=== PATIENT | female | born 1950 | race Two or more races ===

== ENCOUNTER 2024-06-30 09:13 | Emergency (ER) | payer OTHER ==
[~2024-06-30] VITALS: Ht 170.2 cm; Wt 90.7 kg
[2024-06-30] MEDS ORDERED: GLIPIZIDE XL10 MG PO (09:19)
[2024-06-30] MEDS ORDERED: ATORVASTATIN CA20 MG PO (09:20)
[2024-06-30] MEDS ORDERED: ZESTRIL20 MG PO (09:21)
[2024-06-30] MEDS ORDERED: FAMOTIDINE/PF 20 MG in 0.9 % SODIUM CHLORIDE 8 ML IV PUSH STA (09:39)
[2024-06-30] MEDS ORDERED: 0.9 % SODIUM CHLORIDE 1,000 ML IV SCH (09:45)
[2024-06-30] MEDS ORDERED: METRONIDAZOLE/SODIUM CHLORIDE 500 MG/100 ML PIGGYBACK IV ONE (09:45)
[2024-06-30] MEDS ORDERED: MORPHINE SULFATE 4 MG/ML VIAL IV ONE (09:45)
[2024-06-30] MEDS ORDERED: CIPROFLOXACIN IN 5 % DEXTROSE 400 MG/200 ML PIGGYBAG IV ONE (09:45)
[2024-06-30] MEDS ORDERED: ONDANSETRON HCL 2 MG/ML VIAL IV ONE (09:45)
[2024-06-30 10:31] LABS: HEMATOCRIT 39.7 % (36.0-45.00); HEMOGLOBIN 13.5 g/dL (12.0-15.00); MEAN CELL VOLUME 92.3 fL (80.00-100.00); MEAN CORPUSCULAR HEMOGLOBIN 31.4 pg (27.00-32.0); PLATELET COUNT 287 K/uL (150-450); RED CELL DISTRIBUTION WIDTH 13.8 % (11.5-14.5)
[2024-06-30 10:56] LABS: PH,URINE 5.5 (5.0-8.0); URINE APPEARANCE Clear; URINE BILIRRUBIN Negative (NEGATIVE); URINE BLOOD Negative; URINE COLOR Yellow; URINE KETONE Negative (NEGATIVE); URINE LEUKOCYTE Negative; URINE NITRATE Negative; URINE PROTEIN Negative (NEGATIVE); URINE UROBILINOGEN 0.2 E.U./dl
[2024-06-30 10:57] LABS: URINE BACTERIA 291.2 uL (0.0-1933); URINE CAST 1.61 uL (0.0-1.40); URINE EPITHELIAL CELLS 21.5 uL (0.0-38.8); URINE RBC 7.8 uL (0.0-20.8)
[2024-06-30 11:01] LABS: ALBUMIN 3.1 gm/dL (3.4-5.0); BILIRUBIN TOTAL 0.47 mg/dL (0.3-1.2); CALCIUM 8.9 mg/dL (8.5-10.1); CREATININE SERUM 1.13 mg/dL (0.55-1.02); GFR 47.2; GLOBULINA 4.9 G/DL (2.4-3.5); POTASSIUM 3.99 mEq/L (3.5-5.1)
[2024-06-30 11:07] LABS: URINE GLUCOSE >=1000 MG/DL (NEGATIVE)
[2024-06-30] MEDS ORDERED: CIPRO500 MG PO (12:55)
[2024-06-30] MEDS ORDERED: LEVSIN/SL0.125 MG SL (12:55)
[2024-06-30] MEDS ORDERED: METRONIDAZOLE500 MG PO (12:55)
[2024-06-30] MEDS ORDERED: PROTONIX40 MG PO (12:55)
== END 2024-06-30 14:13 | disposition home or self-care (01) ==
LOC: ER 09:16
PROVIDERS: General Practice
DX: R10.32 Left lower quadrant pain (principal); K57.92 Diverticulitis of intestine, part unspecified, without perforation or abscess without bleeding; R10.9 Unspecified abdominal pain; I10 Essential (primary) hypertension; E11.9 Type 2 diabetes mellitus without complications; Z88.0 Allergy status to penicillin; Z88.6 Allergy status to analgesic agent
CPT/HCPCS: 36415; 74176; 96365; 96366; 99284; J0744; J2270; J2405; J3490 ×2; J7030

== ENCOUNTER 2024-10-23 18:24 | Emergency (ER) | payer OTHER ==
[~2024-10-23] VITALS: Ht 167.6 cm; Wt 90.7 kg
[~2024-10-23 18:24] MED LIST: ATORVASTATIN CA20 MG PO; CIPRO500 MG PO; GLIPIZIDE XL10 MG PO; LEVSIN/SL0.125 MG SL; METRONIDAZOLE500 MG PO; PROTONIX40 MG PO; ZESTRIL20 MG PO
[2024-10-23] MEDS ORDERED: 0.9 % SODIUM CHLORIDE 1,000 ML IV STA (19:07)
[2024-10-23] MEDS ORDERED: FAMOTIDINE/PF 20 MG/2 ML VIAL IV ONE (19:15)
[2024-10-23] MEDS ORDERED: ACETAMINOPHEN 500 MG GEL..CAP PO ONE (19:15)
[2024-10-23 20:09] LABS: BASO % 0.5 % (0.1-1.2); EOS # 0.01 (0.04-0.54); EOS % 0.1 % (0.7-7.0); HEMATOCRIT 36.8 % (34.1-44.9); HEMOGLOBIN 12.6 g/dL (11.2-15.7); LYMPH # 0.83 (1.18-3.74); LYMPH % 7.3 % (19.3-53.1); MEAN CORPUSCULAR HEMOGLOBIN 31.4 pg (25.6-32.2); MONO # 0.53 (0.24-0.82); MONO % 4.6 % (4.7-12.5); NEUT # 9.94 (1.56-6.13); NEUT % 86.9 % (34.0-71.1); PLATELET COUNT 262 K/uL (163-369); RED BLOOD COUNT 4.01 M/uL (3.93-5.22); RED CELL DISTRIBUTION WIDTH 13.2 % (11.6-14.4)
[2024-10-23 20:34] LABS: ALBUMIN 3.2 gm/dL (3.4-5.0); BILIRUBIN TOTAL 0.6 mg/dL (0.3-1.2); CALCIUM 9.2 mg/dL (8.5-10.1); CREATININE SERUM 1.14 mg/dL (0.55-1.02); GFR 46.59; GLOBULINA 4.4 G/DL (2.4-3.5); POTASSIUM 3.54 mEq/L (3.5-5.1); TOTAL PROTEIN 7.6 gm/dL (6.4-8.2)
[2024-10-23 21:20] LABS: INFLUENZA A AG NEGATIVE (NEGATIVE); INFLUENZA B AG NEGATIVE (NEGATIVE)
[2024-10-23 21:21] LABS: COVID-19 AG POSITIVE (NEGATIVE)
== END 2024-10-23 23:08 | disposition home or self-care (01) ==
LOC: ER 18:24
PROVIDERS: Emergency Medicine
DX: U07.1 COVID-19 (principal); Z88.6 Allergy status to analgesic agent; Z88.8 Allergy status to other drugs, medicaments and biological substances
CPT/HCPCS: 36415; 96365; 96366; 99282; J3490

== ENCOUNTER 2024-12-30 03:58 | Emergency (ER) | payer OTHER ==
[~2024-12-30] VITALS: Ht 177.8 cm; Wt 90.7 kg
[2024-12-30] MEDS ORDERED: LIPITOR20 MG PO (04:03)
[2024-12-30] MEDS ORDERED: SYNTHROID125 MCG PO (04:03)
[2024-12-30] MEDS ORDERED: ZESTORETIC 20-1 EACH PO (04:03)
[2024-12-30] MEDS ORDERED: FAMOTIDINE/PF 20 MG/2 ML VIAL IV PUSH STA (04:14)
[2024-12-30] MEDS ORDERED: METHYLPREDNISOLONE SOD SUCC 125 MG VIAL IV STA (04:14)
[2024-12-30] MEDS ORDERED: DIPHENHYDRAMINE HCL 50 MG/ML VIAL 1ML IV STA (04:14)
[2024-12-30] MEDS ORDERED: EPINEPHRINE HCL/PF 1 MG/ML AMPUL ONE (04:15)
[2024-12-30] MEDS ORDERED: FAMOTIDINE/PF 20 MG/2 ML VIAL ONE (04:15)
[2024-12-30] MEDS ORDERED: METHYLPREDNISOLONE SOD SUCC 125 MG VIAL ONE (04:15)
[2024-12-30] MEDS ORDERED: EPINEPHRINE HCL/PF 1 MG/ML AMPUL SUBCUTANEO STA (04:15)
[2024-12-30] MEDS ORDERED: DIPHENHYDRAMINE HCL 50 MG/ML VIAL 1ML ONE (04:15)
[2024-12-30] MEDS ORDERED: PEPCID40 MG PO (06:20)
[2024-12-30] MEDS ORDERED: MEDROL4 MG PO (06:20)
[2024-12-30] MEDS ORDERED: BENADRYL25 MG PO (06:20)
== END 2024-12-30 06:25 ==
LOC: ER 04:29
DX: T78.3XXA Angioneurotic edema, initial encounter (principal); R21 Rash and other nonspecific skin eruption; I10 Essential (primary) hypertension; Z88.0 Allergy status to penicillin; Z88.6 Allergy status to analgesic agent
CPT/HCPCS: 99282; J1200; J3490 ×2